=== PATIENT | female | born 1960 | race African-American/Black ===

== ENCOUNTER 2018-03-16 16:12 | Emergency (ER) | payer MEDICAID ==
[~2018-03-16] VITALS: Ht 167.6 cm; Wt 77.1 kg
[~2018-03-16 16:12] MED LIST: KEFLEX500 MG ORAL; KEPPRA500 MG ORAL; NORCO 5-325 TA1 EACH ORAL
[2018-03-16 16:20] VITALS: BP 160/94
[2018-03-16] MEDS ORDERED: levETIRAcetam 1,000mg/NS100ml 100 ML IVPB ONE (16:45)
--- NOTE | 2018-03-16 16:45 | Emergency Room Report ---
History of Present Illness General Chief Complaint: General Complaint Source: Patient, EMS Present Illness HPI Patient is 57-year-old female with a history of hypertension and seizure disorders who presents today with complaints of left ear pain. She states the pain is 6 out of 10 in severity, no medication has been taken.she is also complaining of dizziness prior to arrival and admits to using cocaine. Patient states she was walking the street when she became faint and almost fell over. She states since then she's been having intermittent shortness of breath and nausea. She denies any chest pain. She also states that she has not taken her seizure medication in 3 weeks Allergies: Coded Allergies: ACETAMINOPHEN (Verified Allergy, Unknown, 01/28/16) LIDOCAINE (Unverified Allergy, Unknown, 03/16/18) SULFAMETHOXAZOLE (Verified Allergy, Unknown, 01/28/16) TETRACYCLINE (Unverified Allergy, Unknown, 03/16/18) TETRACYCLINES (Verified Allergy, Unknown, 01/28/16) TRIMETHOPRIM (Verified Allergy, Unknown, 01/28/16) Patient History Reviewed Nursing Documentation: PMH: Agreed; PSxH: Agreed Nursing Documentation-PMH Past Medical History: No History, Except For Hx Hypertension: Yes Hx Seizures: Yes Review of Systems ENT: Reports: ear pain Cardiovascular: Reports: other - near syncope All Other Systems: negative except mentioned in HPI Physical Exam Vital Signs Date Time Temp Pulse Resp B/P (MAP) Pulse Ox O2 Delivery O2 Flow Rate FiO2 03/16/18 16:09 98.7 89 16 160/94 99 Room Air 98.8 Sp02 EP Interpretation: reviewed, normal General Appearance: no apparent distress, alert, GCS 15, non-toxic, other - unkempt Head: normocephalic, atraumatic Eyes: bilateral eye normal inspection, bilateral eye PERRL ENT: hearing grossly normal, normal pharynx, no angioedema, normal voice, other - . Discharge and erythema and left external ear canal consistent with otitis externa Neck: full range of motion, supple/symm/no masses Respiratory: chest non-tender, lungs clear, normal breath sounds, speaking full sentences Cardiovascular #1: regular rate, rhythm, no edema Cardiovascular #2: 2+ carotid (R), 2+ carotid (L), 2+ radial (R), 2+ radial (L) , 2+ dorsalis pedis (R), 2+ dorsalis pedis (L) Gastrointestinal: normal bowel sounds, non tender, soft, non-distended, no guarding, no rebound Rectal: deferred Genitourinary: normal inspection, no CVA tenderness Musculoskeletal: back normal, gait/station normal, normal range of motion, non- tender, calf tenderness Neurologic: alert, oriented x3, responsive, motor strength/tone normal, sensory intact, speech normal Psychiatric: judgement/insight normal, memory normal, mood/affect normal, no suicidal/homicidal ideation Reflexes: 3+ bicep (R), 3+ bicep (L), 3+ tricep (R), 3+ tricep (L), 3+ knee (R) , 3+ knee (L) Skin: normal color, no rash, warm/dry, well hydrated Lymphatic: no adenopathy Medical Decision Making PA Attestation Supervising physician is Dr. Cornejo Reaction to Intervention: Improved Diagnostic Impression: Primary Impression: Otitis externa of left ear Additional Impressions: Noncompliance with medication regimen Cocaine abuse STD exposure History of seizure ER Course Patient is found to have otitis externa of the left ear, will be treated with Polytrim eardrops. EKG and chest x-ray are within normal limits. The patient is refusing additional workup including blood draw. Patient is given a loading dose of Keppra in the ED. She also has concerns about STD exposure and is given azithromycin and Rocephin. Urine negative for UTI. UDS is positive for cocaine. Patient is given a refill of her Keppra as she has not taken her medication over 3 weeks. If she states she takes 1000 mg twice a day. Patient instructed to follow up with PCP if for repeat ASC testing and further management. Patient understands and is agreeable with plan. Discussed case at length with Dr. Cornejo who guided my disposition and treatment. Rhythm Strip Diag. Results Rhythm Strip Time: 19:29 EP Interpretation: yes Rate: 65 Rhythm: NSR, no PVC's, no ectopy Other Impression ARGELIA SWAIN Chest X-Ray Diagnostic Results Chest X-Ray Diagnostic Results : Chest X-Ray Ordered: Yes # of Views/Limited/Complete: 1 View Indication: Chest Pain EP Interpretation: Yes PA Xray: Interpretation reviewed, by supervising MD, and agrees with findings. Interpretation: no consolidation, no effusion, no pneumothorax Impression: No acute disease Electronically Signed by: ARGELIA SWAIN Last Vital Signs Date Time Temp Pulse Resp B/P (MAP) Pulse Ox O2 Delivery O2 Flow Rate FiO2 03/16/18 16:20 98.8 16 160/94 99 Room Air 98.8 03/16/18 16:09 89 Status: improved Disposition: HOME, SELF-CARE Condition: Stable Scripts Neomycin/Polymyxin/Hydrocort (Ynfzsvsa-Cvketarhh-Qo Ear Soln) 10 Ml Solution 10 ML OTIC QID for 10 Days, #10 ML Prov: Rekha Damon 03/16/18 Patient Instructions: Otitis Externa, [id number] Rekha Damon Mar 16, 2018 16:45
--- NOTE | 2018-03-16 17:22 | Diagnostic Imaging Report ---
Indication: Chest pain Technique: XRAY Chest 1v Comparison: None Findings: Heart size and mediastinal contours are within normal limits given technique. There is no focal consolidation, pneumothorax or pleural effusion. Osseous structures demonstrate no acute abnormality. Impression: No radiographic evidence of acute cardiopulmonary disease.
[2018-03-16 17:49] LABS: APPEARANCE,URINE CLEAR; BILIRUBIN, URINE NEGATIVE (NEGATIVE); COLOR,URINE PALE YELLOW; GLUCOSE, URINE (UA) NEGATIVE (NEGATIVE); KETONES,URINE NEGATIVE (NEGATIVE); LEUKOCYTE ESTERASE ,URINE 1+ (NEGATIVE); NITRITE,URINE NEGATIVE (NEGATIVE); PH,URINE 6.5 (4.5-8.0); PROTEIN,URINE NEGATIVE (NEGATIVE); UROBILINOGEN,URINE NORMAL MG/DL (0.0-1.0)
[2018-03-16 18:41] VITALS: BP 148/84
[2018-03-16] MEDS ORDERED: cefTRIAXone 1 GM in NS 55 ML IVPB ONE (19:30)
[2018-03-16] MEDS ORDERED: CORTISPORIN10 ML OTIC (19:43)
[2018-03-16] MEDS ORDERED: Azithromycin 250mg tab ORAL ONE (19:45)
[2018-03-16 20:00] VITALS: BP_SYST 130; BP_SYST 132; BP_SYST 148; BP_DIAS 78; BP_DIAS 79; BP_DIAS 90
[2018-03-16 20:07] VITALS: BP 148/78
--- NOTE | 2018-03-20 17:37 | Cardiology Report ---
APPROVED REPORT EKG Measurement Heart [id number] Normal sinus rhythm Normal ECG
== END 2018-03-16 20:07 | disposition home or self-care (01) ==
LOC: EDBD 16:12 → EMR 17:56
DX: H60.92 Unspecified otitis externa, left ear (principal); F14.10 Cocaine abuse, uncomplicated; Z20.2 Contact with and (suspected) exposure to infections with a predominantly sexual mode of transmission; Z86.69 Personal history of other diseases of the nervous system and sense organs; Z91.14 Patient's other noncompliance with medication regimen; Z88.6 Allergy status to analgesic agent; Z88.2 Allergy status to sulfonamides; Z88.1 Allergy status to other antibiotic agents
CPT/HCPCS: 71045; 80307; 81001; 93005; 96374; 96375; 99283; J0696; J1953; Q0144

== ENCOUNTER 2019-12-23 09:40 | Emergency (ER) | payer MEDICAID ==
[~2019-12-23] VITALS: Ht 172.7 cm; Wt 68.0 kg
[~2019-12-23 09:40] MED LIST changes: +CORTISPORIN10 ML OTIC
--- NOTE | 2019-12-23 10:02 | NUR ---
ED Nurse Note: Pt ambulated to ED d/t pain on lower abdominal region. Per pt she also found some blood on her urine. Placed on bed and gown; hooked to healthcare management consultant. Noted VSS, on RA; no acute distress noted. Will continue to monitor.
[2019-12-23 10:12] VITALS: BP 157/88
[2019-12-23] MEDS ORDERED: CEPHALEXIN500 MG ORAL (10:22)
--- NOTE | 2019-12-23 10:26 | Emergency Room Report ---
History of Present Illness General Chief Complaint: Female Urogenital Problems Source: Patient, Medical Record Present Illness HPI Is a 59-year-old female presents after increased dysuria for 2 days. She reports of increased discoloration of urine as well as increased burning sensation. She denies any vaginal discharge. She had previous urinary tract infections in the past. She denies other current symptoms except for chronic extremity pain. She states that she had chronic pain to her hands after injury several months ago. Denies other locations of pain. Denies any vomiting. She denies any recent fever but states she had fever several days ago. Allergies: Coded Allergies: ACETAMINOPHEN (Verified Allergy, Unknown, 01/28/16) LIDOCAINE (Unverified Allergy, Unknown, 03/16/18) SULFAMETHOXAZOLE (Verified Allergy, Unknown, 01/28/16) TETRACYCLINE (Unverified Allergy, Unknown, 03/16/18) TETRACYCLINES (Verified Allergy, Unknown, 01/28/16) TRIMETHOPRIM (Verified Allergy, Unknown, 01/28/16) Patient History Past Medical History: see triage record Last Menstrual Period: N/A Now: No Reviewed Nursing Documentation: PMH: Agreed; PSxH: Agreed Nursing Documentation-PMH Hx Hypertension: Yes Hx Seizures: Yes Review of Systems All Other Systems: negative except mentioned in HPI Physical Exam Vital Signs Date Time Temp Pulse Resp B/P (MAP) Pulse Ox O2 Delivery O2 Flow Rate FiO2 12/23/19 09:52 98.6 92 18 157/88 (111) 98 Room Air General Appearance: well appearing, no apparent distress, alert, GCS 15, non- toxic Head: normocephalic, atraumatic ENT: hearing grossly normal, normal voice Neck: full range of motion, supple Respiratory: no respiratory distress, no accessory muscle use, speaking full sentences Cardiovascular #1: normal inspection Gastrointestinal: normal inspection, soft Genitourinary: no CVA tenderness Musculoskeletal: normal inspection, no calf tenderness, other - Triggering to the left hand index finger Neurologic: alert, motor strength/tone normal, machine printer III-XII nml as tested, oriented x3, normal gait Psychiatric: mood/affect normal Skin: no rash Medical Decision Making Diagnostic Impression: Primary Impression: Urinary tract infection ER Course Patient presented for dysuria. Differential diagnosis included was not limited to appendicitis, urinary tract infection, urethritis, herpes among others. Urinalysis showed too numerous to count white blood cells consistent with urinary infection Patient has a benign exam and does not appear to require imaging studies or labs at this time. No fever or CVA tenderness to suggest pyelonephritis. She was given first dose of oral antibiotics. Patient appears to be stable for outpatient management. Patient was advised to have urine recheck for clearance. Advised to return for fever, increased pain, persistent vomiting or other concerns. The patient is advised to follow up with primary care doctor in 1-2 days. Patient is advised to return if any worsening condition or if any changes in status that are concerning. This report is dictated with [employer] grab operator software which may occasionally lead to discrepancies related to use of this software. Labs Test 12/23/19 10:00 Urine Color Yellow Urine Appearance Slightly cloudy Urine pH 6 (4.5-8.0) Urine Specific [place] 1.020 (1.005-1.035) Urine Protein 2+ (NEGATIVE) Urine Glucose (UA) Negative (NEGATIVE) Urine Ketones Negative (NEGATIVE) Urine Blood 5+ (NEGATIVE) Urine Nitrite Negative (NEGATIVE) Urine Bilirubin Negative (NEGATIVE) Urine Urobilinogen 1 MG/DL (0.0-1.0) Urine Leukocyte Esterase 3+ (NEGATIVE) Urine RBC 20-30 /HPF (0 - 2) Urine WBC Tntc /HPF (0 - 2) Urine Squamous Epithelial Cells Few /LPF (NONE/OCC) Urine Bacteria Few /HPF (NONE) Last Vital Signs Date Time Temp Pulse Resp B/P (MAP) Pulse Ox O2 Delivery O2 Flow Rate FiO2 12/23/19 10:12 98.6 81 18 157/88 98 Room Air Status: improved Disposition: HOME, SELF-CARE Scripts Cephalexin* (KEFLEX*) 500 Mg Capsule 500 MG ORAL EVERY 6 HOURS, #28 CAP Prov: Michael Cornejo MD 12/23/19 Patient Instructions: Urinary Tract Infection Michael Cornejo MD Dec 23, 2019 10:26
[2019-12-23] MEDS ORDERED: Cephalexin 500mg cap ORAL ONE (10:30)
--- NOTE | 2019-12-23 10:37 | NUR ---
ED Nurse Note: Keflex 500mg PO given. Pt's on bed, VSS, on RA; no acute distress noted.
[2019-12-23 10:39] VITALS: BP 124/82
--- NOTE | 2019-12-23 10:39 | NUR ---
ER DISCHARGE NOTE: Pt is cleared to be discharged per ERMD, Pt is aox4, on room air, with stable vital signs. pt was given dc and prescription instructions, pt was able to verbalize understanding, pt id band removed. pt is able to ambulate with steady gait. pt took all belongings.
[2019-12-23 10:58] LABS: APPEARANCE,URINE SLIGHTLY CLOUDY; BILIRUBIN, URINE NEGATIVE (NEGATIVE); GLUCOSE, URINE (UA) NEGATIVE (NEGATIVE); KETONES,URINE NEGATIVE (NEGATIVE); LEUKOCYTE ESTERASE ,URINE 3+ (NEGATIVE); NITRITE,URINE NEGATIVE (NEGATIVE); PH,URINE 6 (4.5-8.0); PROTEIN,URINE 2+ (NEGATIVE); UROBILINOGEN,URINE 1 MG/DL (0.0-1.0)
[2019-12-23 11:00] LABS: COLOR,URINE YELLOW
== END 2019-12-23 10:39 | disposition home or self-care (01) ==
LOC: EMR 10:30
DX: N39.0 Urinary tract infection, site not specified (principal); I10 Essential (primary) hypertension; G40.909 Epilepsy, unspecified, not intractable, without status epilepticus; Z88.2 Allergy status to sulfonamides; Z88.6 Allergy status to analgesic agent
CPT/HCPCS: 81003; 87086; 87181; Z7502; 99283